=== PATIENT | female | born 1980 | race Caucasian/White ===

== ENCOUNTER 2025-07-09 17:52 | Emergency (ER) | payer OTHER, SELFPAY ==
[2025-07-09] VITALS (20 sets, daily range): BP systolic 130–160; BP diastolic 72–90; PULSE 51–93; TEMP 36.8; O2SAT 98–100; BMI 34.0
--- OUTSIDE RECORDS SUMMARY | 2025-07-09 18:04 | XMS_ITS | Encounter Summary ---
Author Organization [facility] Address [address] [place] [address] Care Team Providers Care Rigging Slinger Name Role Phone Valerie Arnold DO Primary Care Provider [phone]- [phone] Marcelino Stout ORNAMENTAL IRONWORKER.DIETARY AIDE TEACHER Unavailable Source Comments In the event this information is protected by the Federal Confidentiality of Alcohol and Drug AbusePatient Records regulations: The Federal rules restrict any use of the information to criminally investigate or prosecute any alcohol or drug abuse patient.[facility] Reason for Visit * Reason Onset Date Comments Refill Request 07/04/2025 Encounter Details Date Type Department Care Team (Late st Contact Info) Description 07/04/2025 Refill Family Medicine [address] [place] [address] [place] [address] [place] [address] Refill Request Social History Tobacco Use Types Packs/Day Years Used Date Smoking Tobacco: Never Smokeless Tobacco: Never Alcohol Use Standard Drinks/Week Comments Yes 3 (1 standard drink = 0.6 oz pur e alcohol) occasionally [facility] Utilities Answer Date Recorded In the past 12 months has th e electric, gas, oil, or water company threatened to shut off services in your home? Patient declined 04/04/2025 Social Connection and Isolation Panel Answer Date Recorded In a typical week, how many times do you talk on the phone with family, friends, or neighbors? Three times a week 04/04/2025 How often do you get togethe r with friends or relatives? Once a week 04/04/2025 How often do you attend [facility] or faith services? Never 04/04/2025 Do you belong to any clubs o r organizations such as jewish groups, unions, fraternal or athletic groups, or school groups? No 04/04/2025 How often do you attend meet ings of the clubs or organizations you belong to? Never 04/04/2025 Are you , , di vorced, , never , or living with a partner? 04/04/2025 AUDIT-C Answer Date Recorded Q1: How often do you have a drink containing alc ohol? Patient declined 04/04/2025 Q2: How many drinks containi ng alcohol do you have on a typical day when you are drinking? Patient declined 04/04/2025 Q3: How often do you have si x or more drinks on one occasion? Patient declined 04/04/2025 Overall Financial Resource Strain (CARDIA) Answe r Date Recorded How hard is it for you to pa y for the very basics like food, housing, medical care, and heating? Not hard at all 04/04/2025 PHQ-2 Answer Date Recorded PHQ-2 score 0 04/04/2025 [facility] - Occupational Stress Questionnaire Answer Date Recorded Do you feel stress - tense, restless, nervous, or anxious, or unable to sleep at night because your mind is troubled all the time - these days? Not at all 04/04/2025 Exercise Vital Sign Answer Date Recorde d On average, how many days pe r week do you engage in moderate to strenuous exercise (like a brisk walk)? 0 days 04/04/2025 On average, how many minutes do you engage in exercise at this level? 0 min 04/04/2025 Hunger Vital Sign Answer Date Recorded Within the past 12 months, y ou worried that your food would run out before you got the money to buy more. Patient declined Within the past 12 months, t he food you bought just didn't last and you didn't have money to get more. Patient declined 05/2025 PRAPARE - Transportation Answer Date Re corded In the past 12 months, has l ack of transportation kept you from medical appointments or from getting medications? Patient declined 04/04/2025 In the past 12 months, has l ack of transportation kept you from meetings, work, or from getting things needed for daily living? Patient declined 04/04/2025 Housing Stability Vital Sign Answer Supa e Recorded In the last 12 months, was t here a time when you were not able to pay the mortgage or rent on time? No 12/08/2023 In the last 12 months, how many places have you lived? 1 12/08/2023 In the last 12 months, was t here a time when you did not have a steady place to sleep or slept in a halfway (including now)? No 12/08/2023 Area Deprivation Index Answer Date Oli rded National Score (1-100), lowe r number is lower risk 42 12/08/2023 State Score (1-10), lower number is lower risk 2 12/08/2023 Data from: https://www.neighborhoodatlas.medicine.[facility].edu/. 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 Answer Date of Assessment Author No 02/14/2023 3:17 PM Hailey Pollack RN * Are you blind or do you have serious difficulty seeing, even when wearing glasses? Answer Date of Assessment Author No 02/14/2023 3:17 PM Hailey Pollack RN * Do you have serious difficulty walking or climbing stairs? Answer Date of Assessment Author No 02/14/2023 3:17 PM EDT Hailey Jung RN * Do you have difficulty dressing or bathing? Answer Date of Assessment Author No 02/14/2023 3:17 PM EDT Hailey Jung RN * Because of a physical, mental, or emotional condition, do you have difficulty doing errands alone such as visiting a doctor's office or shopping? Answer Date of Assessment Author No 02/14/2023 3:17 PM EDT Hailey Jung RN documented as of this encounter Mental Status * Because of a physical, mental, or emotional condition, do you have serious difficulty concentrating, remembering, or making decisions? Answer Entry Date Author No 02/14/2023 3:17 PM EDT Hailey Jung RN documented in this encounter Miscellaneous Notes * Telephone Encounter - Elvi Hinojosa - 07/05/2025 2:58 PM EDT Called patient on: 07/05/25 Was Voicemail Left: yes Was an appointment scheduled: no MyChart Message Sent: yes Purpose of Call: To assist patient schedule with DO Elvi Higgins Pss * Telephone Encounter - Valerie Arnold DO - 07/05/2025 1:28 PM EDT Prescriptions approved. Patient is due for med check, it can be virtual. Please schedule appointment before next refill is needed. Thank you. * Telephone Encounter - Miguelina Gimenez MA - 07/05/2025 9:34 AM EDT Pt last seen 04/06/25. Pharmacy electronically requesting refills as follows: Requested Prescriptions Pending Prescriptions Disp Refills ondansetron (ZOFRAN) 4 mg tablet 10 tablet 0 Sig: Take 1 tablet by mouth every 8 hours as needed for nausea/vomiting. amphetamine-dextroamphetamine XR (ADDERALL XR) 20 mg capsule 30 capsule 0 Sig: Take 1 capsule by mouth once daily for 30 days. Please review and advise. Miguelina Gimenez MA documented in this encounter Plan of Treatment Upcoming Encounters Date Type Department Care Team (Latest Contact Info) Description 08/08/2025 1:40 PM EDT [facility] [address] [place] [address] [place] [address] [place] [address] med review Zofran and Aderall documented as of this encounter Visit Diagnoses Diagnosis Adult ADHD Attention deficit disorder with hyperactivity documented in this encounter Care Teams Rigging Slinger Relationship Specialty [place] [address] [place] [address] PCP - General Family Medicine 08/10/24 Marcelino Stout, LANDRY.DIETARY AIDE TEACHER [address] [place] [address] Jewelry Appraiser Family Medicine 03/02/25 documented as of this encounter
--- OUTSIDE RECORDS SUMMARY | 2025-07-09 18:04 | XMS_ITS | Encounter Summary ---
Author Organization [facility] Address [address] [place] [address] Care Team Providers Care Concrete Hopper Operator Name Role Phone Valerie Arnold DO Primary Care Provider [phone]- [phone] Marcelino Stout COUNTER SUPERVISOR.WIND TURBINE SERVICE TECHNICIAN Unavailable Source Comments In the event this information is protected by the Federal Confidentiality of Alcohol and Drug AbusePatient Records regulations: The Federal rules restrict any use of the information to criminally investigate or prosecute any alcohol or drug abuse patient.[facility] Encounter Details Date Type Department Care Team (Late st Contact Info) Description 06/07/2025 Results Follow-Up Family Medicine [address] [place] [address] [place] [address] [place], [place] [id number] Social History Tobacco Use Types Packs/Day Years Used Date Smoking Tobacco: Never Smokeless Tobacco: Never Alcohol Use Standard Drinks/Week Comments Yes 3 (1 standard drink = 0.6 oz pur e alcohol) occasionally [facility] Utilities Answer Date Recorded In the past 12 months has th e electric, gas, oil, or water [employer] threatened to shut off services in your home? Patient declined 04/04/2025 Social Connection and Isolation Panel Answer Date Recorded In a typical week, how many times do you talk on the phone with family, friends, or neighbors? Three times a week 04/04/2025 How often do you get togethe r with friends or relatives? Once a week 04/04/2025 How often do you attend chur or roman catholic services? Never 04/04/2025 Do you belong to any clubs o r organizations such as anglican groups, unions, fraternal or athletic groups, or [...] Answer Date Recorded PHQ-2 score 0 04/04/2025 [facility]at ional [facility] - Occupational Stress Questionnaire Answer Date Recorded [...] place to sleep or slept in a nursing home (including now)? No 12/08/2023 Area Deprivation Index Answer Date Oli rded National Score (1-100), lowe r number is lower risk 42 12/08/2023 State Score (1-10), lower number is lower risk 2 12/08/2023 Data from: https://www.neighborhoodatlas.medicine.[facility].edu/. 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 Not on file Not on ilana e [...] Hailey Pollack RN * Do you have difficulty dressing [...] Hailey Jung RN documented in this encounter Plan of Treatment Upcoming Encounters Date Type Department Care Team (Latest Contact Info) Description 08/08/2025 1:40 PM EDT [facility] [address] [place] [address] [place] [address] [place] [address] med review Zofran and Aderall documented as of this encounter Visit Diagnoses Not on filedocumented in this encounter Care Teams Concrete Hopper Operator Relationship Specialty [place] [address] [place] [address] PCP - General Family Medicine 08/10/24 Marcelino Stout, LANDRY.WIND TURBINE SERVICE TECHNICIAN [address] [place] [address] Assistant Nurse Manager Family Medicine 03/02/25 documented as of this encounter
--- OUTSIDE RECORDS SUMMARY | 2025-07-09 18:04 | XMS_ITS | Encounter Summary ---
Author Organization [facility] Address [address] [place] [address] Care Team Providers Care Top Polisher Name Role Phone Moores MillValerie salazar Primary Care Provider [phone] Marcelino Stout MAIL SERVICE COORDINATOR.SINGLE PASS SOIL STABILIZER OPERATOR Unavailable Source Comments In the event this information is protected by the Federal Confidentiality of Alcohol and Drug AbusePatient Records regulations: The Federal rules restrict any use of the information to criminally investigate or prosecute any alcohol or drug abuse patient.[facility] Encounter Details Date Type Department Care Team (Late st Contact Info) Description 06/07/2025 Patient Msg Medical Records [address] [place] [address] Provider, [facility] Questionnaire Submission Social History Tobacco Use Types Packs/Day Years Used Date Smoking Tobacco: Never Smokeless Tobacco: Never Alcohol Use Standard Drinks/Week Comments Yes 3 (1 standard drink = 0.6 oz pur e alcohol) occasionally [facility] Utilities Answer Date Recorded In the past 12 months has e electric, gas, oil, or water company [...] 04/04/2025 How often do you attend chur ch or holiness services? Never 04/04/2025 Do you belong to any clubs o r organizations such as anabaptism groups, unions, fraternal or athletic groups, or [...] Answer Date Recorded PHQ-2 score 0 04/04/2025 [facility] - Occupational Stress Questionnaire Answer Date Recorded [...] place to sleep or slept in a intermediate (including now)? No 12/08/2023 Area Deprivation Index Answer Date Oli rded National Score (1-100), lowe r number is lower risk 42 12/08/2023 State Score (1-10), lower number is lower risk 2 12/08/2023 Data from: https://www.neighborhoodatlas.medicine.[facility]/. 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 file Not on ilana e [...] 02/14/2023 3:17 PM Hailey Pollack RN * Because of a physical, mental, [...] Contact Info) Description 08/08/2025 1:40 PM EDT [facility] Medicine [address] [place] [address] [place] [address] [place] [address] med review Zofran and Aderall documented as of this encounter Visit Diagnoses Not on filedocumented in this encounter Care Teams Top Polisher Relationship Specialty [place] [address] [place] [address] PCP - General Family Medicine 08/10/24 Marcelino Stout, LANDRY.EUGENIA [address] [place] [address] International Relations Teacher Family Medicine 03/02/25 documented as of this encounter
--- OUTSIDE RECORDS SUMMARY | 2025-07-09 18:04 | XMS_ITS | Encounter Summary ---
Author Organization [facility] Address [address] [place] [address] Care Team Providers Care Packing Shed Supervisor Name Role Phone Francisco J Rico DO Primary Care Provider [phone]- [phone] Valerie Arnold DO Primary Care Provider [phone] Nuvia Jesus DO Unavailable Marcelino Stout STONE GRADER.LOGISTICS SYSTEM ENGINEER Unavailable Source Comments In the event this information is protected by the Federal Confidentiality of Alcohol and Drug AbusePatient Records regulations: The Federal rules restrict any use of the information to criminally investigate or prosecute any alcohol or drug abuse patient.[facility] Encounter Details Date Type Department Care Team (Late st Contact Info) Description 02/19/2023 Get Medical Advice Family Medicine [address] [place] [address] Francisco J Rico DO [address] [place] [address] Sharri Social History Tobacco Use Types Packs/Day Years Used Date Smoking Tobacco: Never Smokeless Tobacco: Never Alcohol Use Standard Drinks/Week Comments Yes 3 (1 standard drink = 0.6 oz pur e alcohol) occasionally Social Connection and Isolation Panel Answer Date Recorded In a typical week, how many times do you talk on the phone with family, friends, or neighbors? More than three times a week 10/28/2022 How often do you get togethe r with friends or relatives? Twice a week 10/28/2022 How often do you attend chur or confucianism services? Never 10/28/2022 Do you belong to any clubs o r organizations such as taoism groups, unions, fraternal or athletic groups, or school groups? No 10/28/2022 How often do you attend meet ings of the clubs or organizations you belong to? Never 10/28/2022 Are you , , di vorced, , never , or living with a partner? Living with partner 10/28/2022 AUDIT-C Answer Date Recorded Q1: How often do you have a drink containing alc ohol? 2-4 times a month 10/28/2022 Q2: How many drinks containi ng alcohol do you have on a typical day when you are drinking? 1 or 2 10/28/2022 Q3: How often do you have si x or more drinks on one occasion? Never 10/28/2022 Overall Financial Resource Strain (CARDIA) Answe r Date Recorded How hard is it for you to pa y for the very basics like food, housing, medical care, and heating? Not hard at all 10/28/2022 PHQ-2 Answer Date Recorded PHQ-2 score 0 12/28/2022 [facility] Occupat ional Health - Occupational Stress Questionnaire Answer Date Recorded Do you feel stress - tense, restless, nervous, or anxious, or unable to sleep at night because your mind is troubled all the time - these days? Only a little 10/28/2022 Exercise Vital Sign Answer Date Recorde d On average, how many days pe r week do you engage in moderate to strenuous exercise (like a brisk walk)? 3 days 10/28/2022 On average, how many minutes do you engage in exercise at this level? 60 min 10/28/2022 Hunger Vital Sign Answer Date Recorded Within the past 12 months, y ou worried that your food would run out before you got the money to buy more. Never true 10/28/20 22 Within the past 12 months, t he food you bought just didn't last and you didn't have money to get more. Never true 10/28/2022 PRAPARE - Transportation Answer Date Re corded In the past 12 months, has l ack of transportation kept you from medical appointments or from getting medications? No 10/01 In the past 12 months, has l ack of transportation kept you from meetings, work, or from getting things needed for daily living? No 10/28/2022 Housing Stability Vital Sign Answer Supa e Recorded In the last 12 months, was t here a time when you were not able to pay the mortgage or rent on time? No 10/28/2022 In the last 12 months, how many places have you lived? 1 10/28/2022 In the last 12 months, was t here a time when you did not have a steady place to sleep or slept in a care home (including now)? No 10/28/2022 Area Deprivation Index Answer Date Oli rded National Score (1-100), lowe r number is lower risk 36 12/12/2022 State Score (1-10), lower number is lower risk N ot on file 12/12/2022 Data from: https://www.neighborhoodatlas.medicine.[facility].edu/. Last address used for calculation [address] 12/12/2022 Comments No Sex and Gender Information Value Date Recorded Sex Assigned at Not on file Legal Sex Female 10:15 AM EST Gender Identity Not on file Sexual Orientation Not on file documented as of this [...] Contact Info) Description 08/08/2025 1:40 PM EDT [facility] Medicine [address] [place] [address] [place] [address] [place] [address] med review Zofran and Aderall documented as of this encounter Visit Diagnoses Not on filedocumented in this encounter Care Teams Packing Shed Supervisor Relationship Specialty Start Date End Date Francisco J Rico DO PCP - General Family Medicine 09/01/22 08/09/24 [place] [address] [place] [address] PCP - General Family Medicine 08/10/24 [place] [address] [place] [address] Bisque Tile Burner Family Medicine 11/05/24 03/01/25 Marcelino Stout APRN.EUGENIA [address] [place] [address] Bisque Tile Burner Family Medicine 03/02/25 documented as of this encounter
--- OUTSIDE RECORDS SUMMARY | 2025-07-09 18:04 | XMS_ITS | Encounter Summary ---
Author Organization [facility] Address [address] [place] [address] Care Team Providers Care Garbage Truck Dispatcher Name Role Phone Valerie Arnold Primary Care Provider [phone]- [phone] Marcelino Stout FOREST TECHNICIAN.INSPECTOR AIDE Unavailable Source Comments In the event this information is protected by the Federal Confidentiality of Alcohol and Drug AbusePatient Records regulations: The Federal rules restrict any use of the information to criminally investigate or prosecute any alcohol or drug abuse patient.[facility] Encounter Details Date Type Department Care Team (Late st Contact Info) Description 06/12/2025 Results Follow-Up Family Medicine [address] [place], [place] [id number] Tom Austin APRN.INSPECTOR AIDE [address] [place], [place] [id number] Social History Tobacco Use Types Packs/Day Years Used Date Smoking Tobacco: Never Smokeless Tobacco: Never Alcohol Use Standard Drinks/Week Comments Yes 3 (1 standard drink = 0.6 oz pur e alcohol) occasionally [facility] Utilities Answer Date Recorded In the past 12 months has th e electric, gas, oil, or water [employer] threatened to shut off services in your [...] often do you attend chur ch or mormonism services? Never 04/04/2025 Do you belong to any clubs o r organizations such as cheondoism groups, unions, fraternal or athletic groups, or [...] Answer Date Recorded PHQ-2 score 0 04/04/2025 [facility] of Occupat ional Health - Occupational [...] is lower risk 2 12/08/2023 Data from: https://www.neighborhoodatlas.medicine.[facility].edu/. 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 Answer Entry Date Author No 02/14/2023 3:17 PM EDT Hailey Jung RN documented in this encounter Plan of Treatment Upcoming Encounters Date Type Department Care Team (Latest Contact Info) Description 08/08/2025 1:40 PM EDT [facility] Medicine [address] [place] [address] [place] [address] [place] [address] med review Zofran and Aderall documented as of this encounter Visit Diagnoses Not on filedocumented in this encounter Care Teams Garbage Truck Dispatcher Relationship Specialty [place] [address] [place] [address] PCP - General Family Medicine 08/10/24 Marcelino Stout APRN.CNP [address] [place] [address] Flame Cutter Family Medicine 03/02/25 documented as of this encounter
--- OUTSIDE RECORDS SUMMARY | 2025-07-09 18:04 | XMS_ITS | Encounter Summary ---
Author Organization [facility] Address [address] [place] [address] Care Team Providers Care Wiping Cloth Cutter Name Role Phone Valerie Arnold Primary Care Provider +1- [phone] Marcelino Stout CONSUMER LOAN UNDERWRITER.DIPLOMA MAKER Unavailable Source Comments In the event this information is protected by the Federal Confidentiality of Alcohol and Drug AbusePatient Records regulations: The Federal rules restrict any use of the information to criminally investigate or prosecute any alcohol or drug abuse patient.[facility] Encounter Details Date Type Department Care Team (Late st Contact Info) Description 06/12/2025 Results Follow-Up Family Medicine [address] [place], [place] [id number] Tom Austin APRN.DIPLOMA MAKER [address] [place], [place] [id number] Social History Tobacco Use Types Packs/Day Years Used Date Smoking Tobacco: Never Smokeless Tobacco: Never Alcohol Use Standard Drinks/Week Comments Yes 3 (1 standard drink = 0.6 oz pur e alcohol) occasionally [facility] Utilities Answer Date Recorded In the past 12 months has th e electric, gas, oil, or water [employer] threatened to shut off services in your [...] often do you attend chur ch or religion services? Never 04/04/2025 Do you belong to any clubs o r organizations such as roman catholic groups, unions, fraternal or athletic groups, or [...] Answer Date Recorded PHQ-2 score 0 04/04/2025 [facility] of Occupat ional Health - Occupational [...] place to sleep or slept in a fci (including now)? No 12/08/2023 Area Deprivation Index Answer Date Oli rded National Score (1-100), lowe r number is lower risk 42 12/08/2023 State Score (1-10), lower number is lower risk 2 12/08/2023 Data from: https://www.neighborhoodatlas.medicine.[facility].edu/. 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
--- OUTSIDE RECORDS SUMMARY | 2025-07-09 18:04 | XMS_ITS | Encounter Summary ---
Author Organization [facility] Address [address] [place] [address] Care Team Providers Care Helmet Hat Sweatband Puncher Name Role Phone RicoFrancisco J gonzalez Rupert DO Primary Care Provider + [phone] Valerie Arnold DO Primary Care Provider +1- [phone] Nuvia Jesus DO Unavailable Marcelino Stout PEGA DEVELOPER.LABOR REPRESENTATIVE Unavailable Source Comments In the event this information is protected by the Federal Confidentiality of Alcohol and Drug AbusePatient Records regulations: The Federal rules restrict any use of the information to criminally investigate or prosecute any alcohol or drug abuse patient.[facility] Encounter Details Date Type Department Care Team (Late st Contact Info) Description 09/01/2022 Patient Msg Endocrinology [address] [place] [address] Yeison Teran APRN.LABOR REPRESENTATIVE [address] [place], [place] [id number] Appointment Cancellation Request Social History Tobacco Use Types Packs/Day Years Used Date Smoking Tobacco: Never Smokeless Tobacco: Never Alcohol Use Standard Drinks/Week Comments Yes 3 (1 standard drink = 0.6 oz pur e alcohol) occasionally Social Connection and Isolation Panel Answer Date Recorded In a typical week, how many times do you talk on the phone with family, friends, or neighbors? Once a week 08/10/20 How often do you get togethe r with friends or relatives? Never 08/10/2022 How often do you attend chur or religion services? Never 08/10/2022 Do you belong to any clubs o r organizations such as restorationism groups, unions, fraternal or athletic groups, or school groups? No 08/10/2022 How often do you attend meet ings of the clubs or organizations you belong to? Never 08/10/2022 Are you , , di vorced, , never , or living with a partner? Living with partner 08/10/2022 AUDIT-C Answer Date Recorded Q1: How often do you have a drink containing alc ohol? 2-3 times a week 08/10/2022 Q2: How many drinks containi ng alcohol do you have on a typical day when you are drinking? 1 or 2 08/10/2022 Q3: How often do you have si x or more drinks on one occasion? Never 08/10/2022 Overall Financial Resource Strain (CARDIA) Answe r Date Recorded How hard is it for you to pa y for the very basics like food, housing, medical care, and heating? Not hard at all 08/10/2022 PHQ-2 Answer Date Recorded PHQ-2 score 5 08/10/2022 [facility]ational Stress Questionnaire Answer Date Recorded Do you feel stress - tense, restless, nervous, or anxious, or unable to sleep at night because your mind is troubled all the time - these days? Very much 08/10/2022 Exercise Vital Sign Answer Date Recorde d On average, how many days pe r week do you engage in moderate to strenuous exercise (like a brisk walk)? 0 days 08/10/2022 On average, how many minutes do you engage in exercise at this level? 0 min 08/10/2022 Hunger Vital Sign Answer Date Recorded Within the past 12 months, y ou worried that your food would run out before you got the money to buy more. Never true 08/10/20 22 Within the past 12 months, t he food you bought just didn't last and you didn't have money to get more. Never true 08/10/2022 PRAPARE - Transportation Answer Date Re corded In the past 12 months, has l ack of transportation kept you from medical appointments or from getting medications? No 07/30 In the past 12 months, has l ack of transportation kept you from meetings, work, or from getting things needed for daily living? No 08/10/2022 Housing Stability Vital Sign Answer Supa e Recorded In the last 12 months, was t here a time when you were not able to pay the mortgage or rent on time? No 08/25/2022 In the last 12 months, how many places have you lived? 1 08/25/2022 In the last 12 months, was t here a time when you did not have a steady place to sleep or slept in a retirement (including now)? No 08/25/2022 Area Deprivation Index Answer Date Oli rded National Score (1-100), lowe r number is lower risk 36 07/15/2022 State Score (1-10), lower number is lower risk N ot on file 07/15/2022 Data from: https://www.neighborhoodatlas.medicine.[facility].edu/. Last address used for calculation [address] 07/15/2022 Comments No Sex and Gender Information Value Date Recorded Sex Assigned at Not on file Legal Sex Female 10:15 AM EST Gender Identity Not on file Sexual Orientation Not on file COVID-19 Exposure Response Date Recorded In the last 10 days, have yo u been in contact with someone who was confirmed or suspected to have Coronavirus/COVID-19? No / Unsure 09/02/2022 11:13 AM EDT documented as of this encounter Plan of Treatment Upcoming Encounters Date Type Department Care Team (Latest Contact Info) Description 08/08/2025 1:40 PM EDT [facility] Family Medicine [address] [place], [place] [id number] [place] [address] [place] [address] med review Zofran and Aderall documented as of this encounter Visit Diagnoses Not on filedocumented in this encounter Additional Health Concerns Infection Onset Date Last Indicated Resolved Time COVID-19 Rule-Out 02/08/2023 02/08/2023 02/08/2023 2:00 PM EDT COVID-19 Rule-Out 02/13/2023 02/13/2023 02/13/2023 12:52 AM EDT documented as of this encounter Care Teams Helmet Hat Sweatband Puncher Relationship Specialty Start Date End Date Francisco J Rico DO PCP - General Family Medicine 09/01/22 08/09/24 [place] [address] [place] [address] PCP - General Family Medicine 08/10/24 [place] [address] [place] [address] Emt I/99 Family Medicine 11/05/24 03/01/25 Marcelino Stout APRN.EUGENIA [address] [place] [address] Emt I/99 Family Medicine 03/02/25 documented as of this encounter
--- OUTSIDE RECORDS SUMMARY | 2025-07-09 18:05 | XMS_ITS | Encounter Summary ---
Author Organization [facility] Address [address] [place] [address] Care Team Providers Care Educational Programming Director Name Role Phone Francisco J Rico DO Primary Care Provider +1- [phone] Valerie Arnold DO Primary Care Provider +1 [phone] Nuvia Jesus DO Unavailable Marcelino Stout SPECIAL EDUCATION TEACHING ASSISTANT.LICENSED LOAN OFFICER Unavailable Source Comments In the event this information is protected by the Federal Confidentiality of Alcohol and Drug AbusePatient Records regulations: The Federal rules restrict any use of the information to criminally investigate or prosecute any alcohol or drug abuse patient.[facility] Encounter Details Date Type Department Care Team (Late st Contact Info) Description 02/12/2023 Get Medical Advice Family Medicine [address] [place] [address] Francisco J Rico DO [address] [place] [address] Hospital admit? Social History Tobacco Use Types Packs/Day Years [...] How often do you attend chur or baptist services? Never 10/28/2022 Do you belong to any clubs o r organizations such as adventist groups, unions, fraternal or athletic groups, or [...] Answer Date Recorded PHQ-2 score 0 12/28/2022 [facility] of Occupat ional Health - Occupational [...] slept in a halfway (including now)? No 10/28/2022 Area Deprivation Index Answer Date Oli rded National Score (1-100), lowe r number is lower risk 36 12/12/2022 State Score (1-10), lower number is lower risk N ot on file 12/12/2022 Data from: https://www.neighborhoodatlas.medicine.[facility].edu/. Last address used for calculation [address] 12/12/2022 Comments No Sex and Gender Information Value Date Recorded Sex Assigned at Not on file Legal Sex Female 10:15 AM EST Gender Identity Not on file Sexual Orientation Not on file documented as of this encounter Plan of Treatment Upcoming Encounters Date Type Department Care Team (Latest Contact Info) Description 08/08/2025 1:40 PM EDT [facility] Family Medicine [address] [place], [place] [phone] [place] [address] [place], [place] [id number] med review Zofran and Aderall documented as of this encounter Visit Diagnoses Not on filedocumented in this encounter Additional Health Concerns Infection Onset Date Last Indicated Resolved Time COVID-19 Rule-Out 02/13/2023 02/13/2023 02/13/2023 12:52 AM EDT documented as of this encounter Care Teams Educational Programming Director Relationship Specialty Start Date End Date Francisco J Rico DO PCP - General Family Medicine 09/01/22 08/09/24 [place] [address] [place] [address] PCP - General Family Medicine 08/10/24 [place] [address] [place] [address] Rn Otolaryngology Family Medicine 11/05/24 03/01/25 Marcelino Stout, LANDRY.LICENSED LOAN OFFICER [address] [place] [address] Rn Otolaryngology Family Medicine 03/02/25 documented as of this encounter
--- OUTSIDE RECORDS SUMMARY | 2025-07-09 18:05 | XMS_ITS | Encounter Summary ---
Author Organization [facility] Address [address] [place] [address] Care Team Providers Care Striper Spray Gun Name Role Phone Valerie Arnold DO Primary Care Provider +1- [phone] Nuvia Jesus DO Unavailable Marcelino Stout CHAIN MAKER HAND.VIDEO PRODUCTION ENGINEER Unavailable Source Comments In the event this information is protected by the Federal Confidentiality of Alcohol and Drug AbusePatient Records regulations: The Federal rules restrict any use of the information to criminally investigate or prosecute any alcohol or drug abuse patient.[facility] Reason for Visit * Reason Onset Date Comments Refill Request 02/23/2025 Encounter Details Date Type Department Care Team (Late st Contact Info) Description 02/23/2025 Refill Family Medicine [address] [place], [place] [id number] [place] [address] [place] [address] Refill Request Social History Tobacco Use Types Packs/Day Years Used Date Smoking Tobacco: Never Smokeless Tobacco: Never Alcohol Use Standard Drinks/Week Comments Yes 3 (1 standard drink = 0.6 oz pur e alcohol) occasionally [facility] Utilities Answer Date Recorded In the past 12 months has th e electric, gas, oil, or water company threatened to shut off services in your home? No 12/08/2023 Social Connection and Isolation Panel Answer Date Recorded In a typical week, how many times do you talk on the phone with family, friends, or neighbors? Three times a week 12/08/19 How often do you get togethe r with friends or relatives? Once a week 12/08/2023 How often do you attend chur ch or baptism services? Never 12/08/2023 Do you belong to any clubs o r organizations such as amish groups, unions, fraternal or athletic groups, or school groups? No 12/08/2023 How often do you attend meet ings of the clubs or organizations you belong to? Never 12/08/2023 Are you , , di vorced, , never , or living with a partner? Living with partner 12/08/2023 AUDIT-C Answer Date Recorded Q1: How often do you have a drink containing alcohol? 4 or more times a week 12/08/2023 Q2: How many drinks containi ng alcohol do you have on a typical day when you are drinking? 1 or 2 Q3: How often do you have si x or more drinks on one occasion? Never 12/08/2023 Overall Financial Resource Strain (CARDIA) Answe r Date Recorded How hard is it for you to pa y for the very basics like food, housing, medical care, and heating? Not hard at all 12/08/2023 PHQ-2 Answer Date Recorded PHQ-2 score 0 12/08/2023 [facility] of Occupat ional Health - Occupational Stress Questionnaire Answer Date Recorded Do you feel stress - tense, restless, nervous, or anxious, or unable to sleep at night because your mind is troubled all the time - these days? Not at all 12/08/2023 Exercise Vital Sign Answer Date Recorde d On average, how many days pe r week do you engage in moderate to strenuous exercise (like a brisk walk)? 2 days 12/08/2023 On average, how many minutes do you engage in exercise at this level? 30 min 12/08/2023 Hunger Vital Sign Answer Date Recorded Within the past 12 months, y ou worried that your food would run out before you got the money to buy more. Never true 12/08/19 24 Within the past 12 months, t he food you bought just didn't last and you didn't have money to get more. Never true 12/08/2023 PRAPARE - Transportation Answer Date Re corded In the past 12 months, has l ack of transportation kept you from medical appointments or from getting medications? No 11/29 In the past 12 months, has l ack of transportation kept you from meetings, work, or from getting things needed for daily living? No 12/08/2023 Housing Stability Vital Sign Answer Supa e [...] place to sleep or slept in a penitentiary (including now)? No 12/08/2023 Area Deprivation Index Answer Date Oli rded National Score (1-100), lowe r number is lower risk 42 12/08/2023 State Score (1-10), lower number is lower risk 2 12/08/2023 Data from: https://www.neighborhoodatlas.medicine.[facility].edu/. 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 Answer Date of Assessment Author No 02/14/2023 3:17 PM Hailey Pollack, BRAD * Are you blind or do you [...] * Telephone Encounter - Elvi Hinojosa - 02/26/2025 2:08 PM EDT Called patient on: 02/26/25 Was Voicemail Left: yes Was an appointment scheduled: no [employer]hart Message Sent: yes Purpose of Call: To assist patient schedule for a follow up appt for Medication refills with Dr. Clayton DO. Elvi Johnson Pss * Telephone Encounter - Valerie Arnold DO - 02/23/2025 2:45 PM EDT Patient is due for an office appointment for ADHD follow-up. I did refill her prescription for thismonth however she needs an appointment before the next refill is needed. Thank you. PDMP reviewed and appropriate, without red flags Urine drug screen is due, last done November 2023. Will complete at next appointment Refill appropriate and has been approved * Telephone Encounter - Brianna Lilly MA - 02/23/2025 1:39 PM EDT Last OV 10/31/2024 ..Pharmacy escripts requesting the following refill: Requested Prescriptions Pending Prescriptions Disp Refills ondansetron (ZOFRAN) 4 mg tablet 10 tablet 0 Sig: Take 1 tablet by mouth every 8 hours as needed for nausea/vomiting. amphetamine-dextroamphetamine XR (ADDERALL XR) 20 mg capsule 30 capsule 0 Sig: Take 1 capsule by mouth once daily for 30 days. Please review and advise. Brianna Lilly MA documented in this encounter Plan of Treatment Upcoming Encounters Date Type Department Care Team (Latest Contact Info) Description 08/08/2025 1:[address] [facility] [address] [place] [address] [place] [address] [place] [address] med review Zofran and Aderall documented as of this encounter Visit Diagnoses Diagnosis Attention deficit hyperactivity disorder (ADHD), predominantly inattentive type documented in this encounter Care Teams Striper Spray Gun Relationship Specialty Start [place] [address] [place] [address] PCP - General Family Medicine 08/10/24 [place] [address] [place] [address] Educational Resource Center Teacher Family Medicine 11/05/24 03/01/25 Marcelino Stout APRN.EUGENIA [address] [place] [address] Educational Resource Center Teacher Family Medicine 03/02/25 documented as of this encounter
--- OUTSIDE RECORDS SUMMARY | 2025-07-09 18:05 | XMS_ITS | Encounter Summary ---
Author Organization [facility] Address [address] [place] [address] Care Team Providers Care Interior Design Faculty Member Name Role Phone Francisco J Rico DO Primary Care Provider + [phone] Valerie Arnold DO Primary Care Provider +1 [phone] Nuvia Jesus DO Unavailable Marcelino Stout LIFE SCIENTIST.DROP HAMMER SETTER UP Unavailable Source Comments In the event this information is protected by the Federal Confidentiality of Alcohol and Drug AbusePatient Records regulations: The Federal rules restrict any use of the information to criminally investigate or prosecute any alcohol or drug abuse patient.[facility] Encounter Details Date Type Department Care Team (Late st Contact Info) Description 07/20/2024 Get Medical Advice Family Medicine [facility] [address] [place] [address] Francisco J Rico DO [address] [place] [address] Wemayela and adderall Social History Tobacco Use Types Packs/Day Years Used Date Smoking Tobacco: Never Smokeless Tobacco: Never Alcohol Use Standard Drinks/Week Comments Yes 3 (1 standard drink = 0.6 oz pur e alcohol) occasionally [facility] Utilities Answer Date Recorded In the past [...] week 12/08/2023 How often do you attend [facility] ch or confucianism services? Never 12/08/2023 Do you belong to any clubs o r organizations such as protestant groups, unions, fraternal or athletic groups, or [...] Answer Date Recorded PHQ-2 score 0 12/08/2023 [facility] of Occupat ional Health - Occupational Stress [...] place to sleep or slept in a residential (including now)? No 12/08/2023 Area Deprivation Index Answer Date Oli rded National Score (1-100), lowe r number is lower risk 42 12/08/2023 State Score (1-10), lower number is lower risk 2 12/08/2023 Data from: https://www.neighborhoodatlas.medicine.[facility].edu/. Last address used for calculation [address] 12/08/2023 Comments No Sex [...] 1:40 PM EDT [facility] Medicine [address] [place] [address] [place] [address] [place] [address] med review Zofran and Aderall documented as of this encounter Visit Diagnoses Not on filedocumented in this encounter Care Teams Interior Design Faculty Member Relationship Specialty Start Date End Date Francisco J Rico DO PCP - General Family Medicine 09/01/22 08/09/24 [place] [address] [place] [address] PCP - General Family Medicine 08/10/24 [place] [address] [place] [address] Assistant Professor Of Marine Biology Family Medicine 11/05/24 03/01/25 Marcelino Stout, LANDRY.DROP HAMMER SETTER UP [address] [place], [place] [id number] Assistant Professor Of Marine Biology Family Medicine 03/02/25 documented as of this encounter
--- OUTSIDE RECORDS SUMMARY | 2025-07-09 18:05 | XMS_ITS | Encounter Summary ---
Author Organization [facility] Address [address] [place] [address] Care Team Providers Care Dermatology Physician Name Role Phone Trisha Francisco J Emery DO Primary Care Provider +- [phone] Valerie Arnold DO Primary Care Provider +1 [phone] Nuvia Jesus DO Unavailable Marcelino Stout STAFF NURSE.MANAGER CLINICAL Unavailable Source Comments In the event this information is protected by the Federal Confidentiality of Alcohol and Drug AbusePatient Records regulations: The Federal rules restrict any use of the information to criminally investigate or prosecute any alcohol or drug abuse patient.[facility] Encounter Details Date Type Department Care Team (Late st Contact Info) Description 06/10/2023 Patient Msg MRI A10 [address] [address] Provider, [facility] Order for your Imaging Social History Tobacco Use Types Packs/Day Years [...] 10/28/2022 How often do you attend chur ch or mormon services? Never 10/28/2022 Do you belong to [...] Answer Date Recorded PHQ-2 score 0 12/28/2022 [facility] of Occupat ional Health - Occupational [...] slept in a residential (including now)? No 10/28/2022 Area Deprivation Index Answer Date Oli rded National Score (1-100), lowe r number is lower risk 36 12/12/2022 State Score (1-10), lower number is lower risk N ot on file 12/12/2022 Data from: https://www.neighborhoodatlas.[facility].edu/. Last address used for calculation [address] 12/12/2022 Comments No Sex and Gender Information [...] Contact Info) Description 08/08/2025 1:40 PM EDT [facility] [address] [place] [address] [place] [address] [place] [address] med review Zofran and Aderall documented as of this encounter Visit Diagnoses Not on filedocumented in this encounter Care Teams Dermatology Physician Relationship Specialty Start Date End Date Francisco J Rico DO PCP - General Family Medicine 09/01/22 08/09/24 [place] [address] [place] [address] PCP - General Family Medicine 08/10/24 [place] [address] [place] [address] Fountain Worker Family Medicine 11/05/24 03/01/25 Marcelino Stout APRN.EUGENIA [address] [place] [address] Fountain Worker Family Medicine 03/02/25 documented as of this encounter
--- OUTSIDE RECORDS SUMMARY | 2025-07-09 18:05 | XMS_ITS | Encounter Summary ---
Author Organization [facility] Address [address] [place] [address] Care Team Providers Care Car Pusher Name Role Phone Trisha Francisco J Emery DO Primary Care Provider +- [phone] Valerie Arnold DO Primary Care Provider +1 [phone] Nuvia Jesus DO Unavailable Marcelino Stout DRUPAL ARCHITECT.TELEMARKETING SALES REPRESENTATIVE Unavailable Source Comments In the event this information is protected by the Federal Confidentiality of Alcohol and Drug AbusePatient Records regulations: The Federal rules restrict any use of the information to criminally investigate or prosecute any alcohol or drug abuse patient.[facility] Encounter Details Date Type Department Care Team (Late st Contact Info) Description 02/14/2024 Patient Msg Hematology [address] [place], [place] [id number] Provider, [facility] Office Visit Social History Tobacco Use Types Packs/Day Years Used Date Smoking Tobacco: Never Smokeless Tobacco: Never Alcohol Use Standard Drinks/Week Comments Yes 3 (1 standard drink = 0.6 oz pur e alcohol) occasionally C Utilities Answer Date Recorded In the past 12 months has e [employer], gas, oil, or water [employer] threatened to shut off services in your home? No 12/08/2023 Social Connection and Isolation Panel Answer Date Recorded In a typical week, how many times do you talk on the phone with family, friends, or neighbors? Three times a week 12/08/19 How often do you get togethe r with friends or relatives? Once a week 12/08/2023 How often do you attend chur or orthodox services? Never 12/08/2023 Do you belong to any clubs o r organizations such as restorationist groups, unions, fraternal or athletic groups, or [...] Answer Date Recorded PHQ-2 score 0 12/08/2023 [facility] of Occupat ional Health - Occupational [...] is lower risk 2 12/08/2023 Data from: https://www.neighborhoodatlas.[facility].edu/. Last address used for calculation [id number] 12/08/2023 Comments No Sex [...] Assessment Author No 02/14/2023 3:17 PM EDT Haiely Jung RN documented as of this encounter Mental Status * Because of a physical, mental, or emotional condition, do you have serious difficulty concentrating, remembering, or making decisions? Answer Entry Date Author No 02/14/2023 3:17 PM EDT Hailey Jung RN documented in this encounter Plan of Treatment Upcoming Encounters Date Type Department Care Team (Latest Contact Info) Description 08/08/2025 1:40 PM EDT [facility] [address] [place] [address] [place] [address] [place] [address] med review Zofran and Aderall documented as of this encounter Visit Diagnoses Not on filedocumented in this encounter Care Teams Car Pusher Relationship Specialty Start Date End Date Francisco J Rico DO PCP - General Family Medicine 09/01/22 08/09/24 [place] [address] [place] [address] PCP - General Family Medicine 08/10/24 [place] [address] [place] [address] Construction Helper Family Medicine 11/05/24 03/01/25 Marcelino Stout APRN.EUGENIA [address] [place] [address] Construction Helper Family Medicine 03/02/25 documented as of this encounter
--- OUTSIDE RECORDS SUMMARY | 2025-07-09 18:05 | XMS_ITS | Encounter Summary ---
Author Organization [facility] Address [address] [place] [address] Care Team Providers Care Social Services Designee Name Role Phone Francisco J Rico DO Primary Care Provider + [phone] Valerie Arnold DO Primary Care Provider +1 [phone] Nuvia Jesus DO Unavailable Marcelino Stout TEACHER TUTOR.CUSHION STUFFER Unavailable Source Comments In the event this information is protected by the Federal Confidentiality of Alcohol and Drug AbusePatient Records regulations: The Federal rules restrict any use of the information to criminally investigate or prosecute any alcohol or drug abuse patient.[facility] Reason for Visit * Reason Onset Date Comments Refill Request 07/27/2024 Encounter Details Date Type Department Care Team (Late st Contact Info) Description 07/27/2024 Refill Family Medicine [address] [place], [place] [id number] Francisco J Rico DO [address] [place] [address] Refill Request Social History Tobacco Use Types Packs/Day Years Used Date Smoking Tobacco: Never Smokeless Tobacco: Never Alcohol Use Standard Drinks/Week Comments Yes 3 (1 standard drink = 0.6 oz pur e alcohol) occasionally [facility] Utilities Answer Date Recorded In the [...] week 12/08/2023 How often do you attend [facility] ch or congregation services? Never 12/08/2023 Do you belong to any clubs o r organizations such as yarsanism groups, unions, fraternal or athletic groups, or [...] Date Recorded PHQ-2 score 0 12/08/2023 [facility] of Occupat ional Health - Occupational Stress [...] place to sleep or slept in a usp (including now)? No 12/08/2023 Area Deprivation Index Answer Date Oli rded National Score (1-100), lowe r number is lower risk 42 12/08/2023 State Score (1-10), lower number is lower risk 2 12/08/2023 Data from: https://www.neighborhoodatlas.medicine.[facility].edu/. Last address used for calculation [address] 12/08/2023 Comments No Sex [...] encounter Miscellaneous Notes * Telephone Encounter - Chiara Dobson - 07/27/2024 3:17 PM EDT See note from patient Can i get .25 mg dosage so i can titrate back up. Has est care appt with Dr Arnold documented in this encounter Plan of Treatment Upcoming Encounters Date Type Department Care Team (Latest Contact Info) Description 08/08/2025 1:40 PM EDT [facility] Family Medicine [address] [place] [address] [place] [address] [place] [address] med review Zofran and Aderall documented as of this encounter Visit Diagnoses Diagnosis Obesity, Class II, BMI 35-39.9 Obesity, unspecified documented in this encounter Care Teams Social Services Designee Relationship Specialty Start Date End Date Francisco J Rico DO PCP - General Family Medicine 09/01/22 08/09/24 [place] [address] [place] [address] PCP - General Family Medicine 08/10/24 [place] [address] [place] [address] Snack Steward Family Medicine 11/05/24 03/01/25 Marcelino Stout, LANDRY.CUSHION STUFFER [address] [place] [address] Snack Steward Family Medicine 03/02/25 documented as of this encounter
--- OUTSIDE RECORDS SUMMARY | 2025-07-09 18:05 | XMS_ITS | Encounter Summary ---
Author Organization [facility] Address [address] [place] [address] Care Team Providers Care Analytics Analyst Name Role Phone Trisha Francisco J Emery DO Primary Care Provider +1- [phone] Valerie Arnold DO Primary Care Provider +1 [phone] Nuvia Jesus DO Unavailable Marcelino Stout MANAGED CARE LIAISON.MAINFRAME SOFTWARE DEVELOPER Unavailable Source Comments In the event this information is protected by the Federal Confidentiality of Alcohol and Drug AbusePatient Records regulations: The Federal rules restrict any use of the information to criminally investigate or prosecute any alcohol or drug abuse patient.[facility] Encounter Details Date Type Department Care Team (Late st Contact Info) Description 08/16/2023 [place] [address] Provider, [facility] Final Scheduling Notice Social History Tobacco Use Types Packs/Day Years [...] often do you attend chur ch or zoroastrianism services? Never 10/28/2022 Do you belong to any clubs o r organizations such as catholic groups, unions, fraternal or athletic groups, [...] slept in a retirement (including now)? No 10/28/2022 Area Deprivation Index Answer Date Oli rded National Score (1-100), lowe r number is lower risk 36 12/12/2022 State Score (1-10), lower number is lower risk N ot on file 12/12/2022 Data from: https://www.neighborhoodatlas.[facility]/. Last address used for calculation [address] 12/12/2022 Comments No Sex [...] Author No 02/14/2023 3:17 PM EDT Hailey Jung, RN documented as of this encounter Mental Status * Because of a physical, mental, or emotional condition, do you have serious difficulty concentrating, remembering, or making decisions? Answer Entry Date Author No 02/14/2023 3:17 PM EDT Hailey Jung RN documented in this encounter Plan of Treatment Upcoming Encounters Date Type Department Care Team (Latest Contact Info) Description 08/08/2025 1:40 PM EDT [facility] [address] [place] [address] [place] [address] [place] [address] med review Zofran and Aderall documented as of this encounter Visit Diagnoses Not on filedocumented in this encounter Care Teams Analytics Analyst Relationship Specialty Start Date End Date Francisco J Rico DO PCP - General Family Medicine 09/01/22 08/09/24 [place] [address] [place] [address] PCP - General Family Medicine 08/10/24 [place] [address] [place] [address] Account Development Representative Family Medicine 11/05/24 03/01/25 Marcelino Stout APRN.MAINFRAME SOFTWARE DEVELOPER [address] [place] [address] Account Development Representative Family Medicine 03/02/25 documented as of this encounter
--- OUTSIDE RECORDS SUMMARY | 2025-07-09 18:05 | XMS_ITS | Encounter Summary ---
Author Organization [facility] Address [address] [place] [address] Care Team Providers Care Keno Dealer Name Role Phone [place] Primary Care Provider +1 [phone] Marcelino Stout RN SANE.BUSINESS INTELLIGENCE REPORTING ANALYST Unavailable Source Comments In the event this information is protected by the Federal Confidentiality of Alcohol and Drug AbusePatient Records regulations: The Federal rules restrict any use of the information to criminally investigate or prosecute any alcohol or drug abuse patient.[facility] Encounter Details Date Type Department Care Team (Late st Contact Info) Description 06/07/2025 Patient Msg Medical Records [address] [place] [address] Provider, [facility] Questionnaire Submission Social History Tobacco [...] often do you attend chur ch or latter-day services? Never 04/04/2025 Do you belong to any clubs o r organizations such as judaism groups, unions, fraternal or athletic groups, or [...] Answer Date Recorded PHQ-2 score 0 04/04/2025 [facility] - Occupational Stress Questionnaire Answer Date Recorded [...] place to sleep or slept in a fpc (including now)? No 12/08/2023 Area Deprivation Index Answer Date Oli rded National Score (1-100), lowe r number is lower risk 42 12/08/2023 State Score (1-10), lower number is lower risk 2 12/08/2023 Data from: https://www.neighborhoodatlas.medicine.[facility]/. 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
--- OUTSIDE RECORDS SUMMARY | 2025-07-09 18:05 | XMS_ITS | Encounter Summary ---
Author Organization [facility] Address [address] [place] [address] Care Team Providers Care Hose Handler Name Role Phone Trisha Francisco J Emery DO Primary Care Provider +- [phone] Valerie Arnold DO Primary Care Provider [phone] [phone] Nuvia Jesus DO Unavailable Marcelino Stout MULTIGRAPH OPERATOR.PBX REPAIRER Unavailable Source Comments In the event this information is protected by the Federal Confidentiality of Alcohol and Drug AbusePatient Records regulations: The Federal rules restrict any use of the information to criminally investigate or prosecute any alcohol or drug abuse patient.[facility] Encounter Details Date Type Department Care Team (Late st Contact Info) Description 01/31/2024 Patient Msg CB/Gynecology [address] [place] [address] Provider, Ccf Upcoming CT Appointment Social History Tobacco Use Types Packs/Day Years Used Date Smoking Tobacco: Never Smokeless Tobacco: Never Alcohol Use Standard Drinks/Week Comments Yes 3 (1 standard drink = 0.6 oz pur e alcohol) occasionally C Utilities Answer Date Recorded In the past 12 months has th e electric, gas, oil, or water [employer] threatened to shut off services in your home? No 12/08/2023 Social Connection and Isolation Panel Answer Date Recorded In a typical week, how many times do you talk on the phone with family, friends, or neighbors? Three times a week 12/08/19 How often do you get togethe r with friends or relatives? Once a week 12/08/2023 How often do you attend chur or holiness services? Never 12/08/2023 Do you belong to [...] Answer Date Recorded PHQ-2 score 0 12/08/2023 [facility] of Occupat ional Health - [...] place to sleep or slept in a skilled nursing (including now)? No 12/08/2023 Area Deprivation Index Answer Date Oli rded National Score (1-100), lowe r number is lower risk 42 12/08/2023 State Score (1-10), lower number is lower risk 2 12/08/2023 Data from: https://www.neighborhoodatlas.[facility].edu/. Last address used for calculation [address] 12/08/2023 Comments No Sex [...] Info) Description 08/08/2025 1:[address] [facility] [address] [place] [address] [place] [address] [place] [address] med review Zofran and Aderall documented as of this encounter Visit Diagnoses Not on filedocumented in this encounter Care Teams Hose Handler Relationship Specialty Start Date End Date Francisco J Rico DO PCP - General Family Medicine 09/01/22 08/09/24 [place] [address] [place] [address] PCP - General Family Medicine 08/10/24 [place] [address] [place] [address] Traveling Representative Family Medicine 11/05/24 03/01/25 Marcelino Stout APRN.EUGENIA [address] [place] [address] Traveling Representative Family Medicine 03/02/25 documented as of this encounter
--- OUTSIDE RECORDS SUMMARY | 2025-07-09 18:05 | XMS_ITS | Encounter Summary ---
Author Organization [facility] Address [address] [place] [address] Care Team Providers Care Body And Fender Mechanic Apprentice Name Role Phone Francisco J Rico DO Primary Care Provider [phone]- [phone] Valerie Arnold DO Primary Care Provider +1 [phone] Nuvia Jesus DO Unavailable Marcelino Stout BUILDING DISMANTLER.DICE DEALER Unavailable Source Comments In the event this information is protected by the Federal Confidentiality of Alcohol and Drug AbusePatient Records regulations: The Federal rules restrict any use of the information to criminally investigate or prosecute any alcohol or drug abuse patient.[facility] Encounter Details Date Type Department Care Team (Late st Contact Info) Description 02/03/2023 Get Medical Advice Family Medicine [address] [place] [address] Francisco J Rico DO [address] [place] [address] Med dose change request x2 Social History Tobacco Use Types Packs/Day Years [...] How often do you attend chur or uatsdin services? Never 10/28/2022 Do you belong to [...] Answer Date Recorded PHQ-2 score 0 12/28/2022 [facility] of Occupat ional Health - [...] place to sleep or slept in a longterm (including now)? No 10/28/2022 Area Deprivation Index Answer Date Oli rded National Score (1-100), lowe r number is lower risk 36 12/12/2022 State Score (1-10), lower number is lower risk N ot on file 12/12/2022 Data from: https://www.neighborhoodatlas.medicine.[facility].edu/. Last address used for calculation [address] 12/12/2022 Comments No Sex and Gender Information Value Date Recorded Sex Assigned at Not on file Legal Sex Female 10:15 AM EST Gender Identity Not on file Sexual Orientation Not on file documented as of this encounter Plan of Treatment Upcoming Encounters Date Type Department Care Team (Latest Contact Info) Description 08/08/2025 1:40 PM EDT [facility] Family Medicine [address] [place], [place] [id number] [place] [address] [place], [place] [id number] med review Zofran and Aderall documented as of this encounter Visit Diagnoses Not on filedocumented in this encounter Additional Health Concerns Infection Onset Date Last Indicated Resolved Time COVID-19 Rule-Out 02/08/2023 02/08/2023 02/08/2023 2:00 PM EDT COVID-19 Rule-Out 02/13/2023 02/13/2023 02/13/2023 12:52 AM EDT documented as of this encounter Care Teams Body And Fender Mechanic Apprentice Relationship Specialty Start Date End Date Francisco J Rico DO PCP - General Family Medicine 09/01/22 08/09/24 [place] [address] [place] [address] PCP - General Family Medicine 08/10/24 [place] [address] [place] [address] Pamphlet Distributor Family Medicine 11/05/24 03/01/25 Marcelino Stout APRN.EUGENIA [address] [place] [address] Pamphlet Distributor Family Medicine 03/02/25 documented as of this encounter
--- OUTSIDE RECORDS SUMMARY | 2025-07-09 18:05 | XMS_ITS | Encounter Summary ---
Author Organization [facility] Address [address] [place] [address] Care Team Providers Care Forestry Pilot Name Role Phone Trisha Francisco J Emery DO Primary Care Provider +- [phone] Valerie Arnold DO Primary Care Provider +1 [phone] Nuvia Jesus DO Unavailable Marcelino Stout PRINT AND PATTERN DESIGNER.GEAR TESTER Unavailable Source Comments In the event this information is protected by the Federal Confidentiality of Alcohol and Drug AbusePatient Records regulations: The Federal rules restrict any use of the information to criminally investigate or prosecute any alcohol or drug abuse patient.[facility] Encounter Details Date Type Department Care Team (Late st Contact Info) Description 02/09/2023 Patient Msg Family Medicine [address] [place] [address] Provider, [facility]cf Reschedule Social History Tobacco Use Types Packs/Day Years [...] often do you attend chur ch or yarsani services? Never 10/28/2022 Do you belong to [...] Answer Date Recorded PHQ-2 score 0 12/28/2022 [facility] of Occupat ional Health - Occupational [...] place to sleep or slept in a [place] [facility] care facility (including now)? No 10/28/2022 Area Deprivation Index Answer Date Oli rded National Score (1-100), lowe r number is lower risk 36 12/12/2022 State Score (1-10), lower number is lower risk N ot on file 12/12/2022 Data from: https://www.neighborhoodatlas.[facility].edu/. Last address used for calculation [address] 12/12/2022 Comments No Sex and Gender Information Value Date Recorded Sex Assigned at Not on file Legal Sex Female 10:15 AM EST Gender Identity Not on file Sexual Orientation Not on file documented as of this encounter Plan of Treatment Upcoming Encounters Date Type Department Care Team (Latest Contact Info) Description 08/08/2025 1:40 PM EDT [facility] Family Medicine [address] [place] [address] [place] [address] [place] [address] med review Jose M and Lazara documented as of this encounter Visit Diagnoses Not on filedocumented in this encounter Additional Health Concerns Infection Onset Date Last Indicated Resolved Time COVID-19 Rule-Out 02/13/2023 02/13/2023 02/13/2023 12:52 AM EDT documented as of this encounter Care Teams Forestry Pilot Relationship Specialty Start Date End Date Francisco J Rico DO PCP - General Family Medicine 09/01/22 08/09/24 [place] [address] [place] [address] PCP - General Family Medicine 08/10/24 [place] [address] [place] [address] Communications Advisor Family Medicine 11/05/24 03/01/25 Marcelino Stout APRN.GEAR TESTER [address] [place] [address] Communications Advisor Family Medicine 03/02/25 documented as of this encounter
--- OUTSIDE RECORDS SUMMARY | 2025-07-09 18:05 | XMS_ITS | Encounter Summary ---
Author Organization [facility] Address [address] [place] [address] Care Team Providers Care Railroad Car Painter Name Role Phone [place]ore, Duyen DO Primary Care Provider [phone] Nuvia Jesus DO Unavailable Marcelino Stout NATURAL RESOURCES MANAGER.VETERINARY MEDICINE SCIENTIST Unavailable Source Comments In the event this information is protected by the Federal Confidentiality of Alcohol and Drug AbusePatient Records regulations: The Federal rules restrict any use of the information to criminally investigate or prosecute any alcohol or drug abuse patient.[facility] Reason for Visit * Reason Onset Date Comments Refill Request 08/23/2024 Encounter Details Date Type Department Care Team (Late st Contact Info) Description 08/23/2024 Refill Family Medicine [address] [place], [place] [id number] Francisco J Rico DO [address] [place], [place] [id number] Refill Request Social History Tobacco Use Types Packs/Day Years Used Date Smoking Tobacco: Never Smokeless Tobacco: Never Alcohol Use Standard Drinks/Week Comments Yes 3 (1 standard drink = 0.6 oz pur e alcohol) occasionally [facility] Utilities Answer Date Recorded In the past [...] often do you attend chur ch or scientologist services? Never 12/08/2023 Do you belong to [...] Answer Date Recorded PHQ-2 score 0 12/08/2023 [facility] of Occupat ional Health - Occupational Stress [...] is lower risk 2 12/08/2023 Data from: https://www.neighborhoodatlas.[facility].edu/. 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 She says she wanted to switch back to the 20 mg XR of Adderral,which she was on previously but it was out of stock. I refilled it since I wanted her to have it before the weekend if needed. However, thought future requests should go to you since she's established. * Telephone Encounter - Elly Palomares LPN - 08/24/2024 11:07 AM EDT Patient's request for medication is as follows: Patient comment: Adderall 20mg xr is now back in stock at the [facility] in [place]. Can i go back on this dose for my next refill. It works better than the 2 -10mg/day. Thanks! Requested Prescriptions Pending Prescriptions Disp Refills dextroamphetamine-amphetamine (ADDERALL) 10 mg tablet 60 tablet 0 Sig: Take 1 tablet by mouth two times a day for 30 days. Please approve the above prescription(s) to electronically send to pharmacy. Elly Palomares LPN documented in this encounter Plan of Treatment Upcoming Encounters Date Type Department Care Team (Latest Contact Info) Description 08/08/2025 1:40 PM EDT [facility] [address] [place] [address] [place] [address] [place] [address] med review Jose M and Mimal documented as of this encounter Visit Diagnoses Diagnosis Attention deficit hyperactivity disorder (ADHD), predominantly inattentive type documented in this encounter Care Teams Railroad Car Painter Relationship Specialty [place] [address] [place] [address] PCP - General Family Medicine 08/10/24 [place] [address] [place] [address] Plant Packer Family Medicine 11/05/24 03/01/25 Marcelino Stout, LANDRY.EUGENIA [address] [place] [address] Plant Packer Family Medicine 03/02/25 documented as of this encounter
--- OUTSIDE RECORDS SUMMARY | 2025-07-09 18:05 | XMS_ITS | Encounter Summary ---
Author Organization [facility] Address [address] [place] [address] Care Team Providers Care Farrowing Worker Name Role Phone Trisha Francisco J Emery DO Primary Care Provider +- [phone] Valerie Arnold DO Primary Care Provider [phone] Nuvia Jesus DO Unavailable Marcelino Stout HEALTH INFORMATION MANAGER.RESTAURANT RECRUITER Unavailable Source Comments In the event this information is protected by the Federal Confidentiality of Alcohol and Drug AbusePatient Records regulations: The Federal rules restrict any use of the information to criminally investigate or prosecute any alcohol or drug abuse patient.[facility] Encounter Details Date Type Department Care Team (Late st Contact Info) Description 02/09/2023 [place] [address] Provider, [facility] Actionable Imaging Result Notification Patient Outreach Social History Tobacco Use Types Packs/Day Years [...] How often do you attend chur or mandaeism services? Never 10/28/2022 Do you belong to any clubs o r organizations such as hoahaoism groups, unions, fraternal or athletic groups, or [...] Answer Date Recorded PHQ-2 score 0 12/28/2022 [facility] - Occupational Stress Questionnaire Answer Date [...] place to sleep or slept in a senior care (including now)? No 10/28/2022 Area Deprivation Index Answer Date Oli rded National Score (1-100), lowe r number is lower risk 36 12/12/2022 State Score (1-10), lower number is lower risk N ot on file 12/12/2022 Data from: https://www.neighborhoodatlas.medicine.[facility].edu/. Last address used for calculation [address] 12/12/2022 Comments No Sex and Gender Information Value Date Recorded Sex Assigned at Not on file Legal Sex Female 10:15 AM EST Gender Identity Not on file Sexual Orientation Not on file documented as of this encounter Plan of Treatment Upcoming Encounters Date Type Department Care Team (Latest Contact Info) Description 08/08/2025 1:40 PM EDT [facility] Family Medicine [address] [place] [address] [place] [address] [place] [address] med review Rashmi documented as of this encounter Visit Diagnoses Not on filedocumented in this encounter Additional Health Concerns Infection Onset Date Last Indicated Resolved Time COVID-19 Rule-Out 02/13/2023 02/13/2023 02/13/2023 12:52 AM EDT documented as of this encounter Care Teams Farrowing Worker Relationship Specialty Start Date End Date Francisco J Rico DO PCP - General Family Medicine 09/01/22 08/09/24 [place] [address] [place] [address] PCP - General Family Medicine 08/10/24 [place] [address] [place] [address] Business Consult Family Medicine 11/05/24 03/01/25 Marcelino Stout APRN.RESTAURANT RECRUITER [address] [place] [address] Business Consult Family Medicine 03/02/25 documented as of this encounter
--- OUTSIDE RECORDS SUMMARY | 2025-07-09 18:05 | XMS_ITS | Encounter Summary ---
Author Organization [facility] Address [address] [place] [address] Care Team Providers Care Living Nurse Name Role Phone Clayton, Duyen DO Primary Care Provider [phone] Nuvia Jesus DO Unavailable Marcelino Stout WHITE SUGAR SUPERVISOR.SUPERINTENDENT BUILDING Unavailable Source Comments In the event this information is protected by the Federal Confidentiality of Alcohol and Drug AbusePatient Records regulations: The Federal rules restrict any use of the information to criminally investigate or prosecute any alcohol or drug abuse patient.[facility] Reason for Visit * Reason Onset Date Comments Refill Request 12/06/2024 Encounter Details Date Type Department Care Team (Late st Contact Info) Description 12/06/2024 Telephone Family Medicine [address] [place], [place] [id number] Francisco J Rico DO [address] [place] [address] Refill Request Social History Tobacco Use Types Packs/Day Years Used Date Smoking Tobacco: Never Smokeless Tobacco: Never Alcohol Use Standard Drinks/Week Comments Yes 3 (1 standard drink = 0.6 oz pur e alcohol) occasionally [facility] Utilities Answer Date Recorded In the [...] often do you attend chur ch or methodist services? Never 12/08/2023 Do you belong to any clubs o r organizations such as voodoo groups, unions, fraternal or athletic groups, or [...] Answer Date Recorded PHQ-2 score 0 12/08/2023 [facility] of Occupat ional Health - Occupational Stress [...] place to sleep or slept in a group home (including now)? No 12/08/2023 Area Deprivation Index Answer Date Oli rded National Score (1-100), lowe r number is lower risk 42 12/08/2023 State Score (1-10), lower number is lower risk 2 12/08/2023 Data from: https://www.neighborhoodatlas.[facility].edu/. 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 Answer Entry Date Author No 02/14/2023 3:17 PM Hailey Pollack RN documented in this encounter Miscellaneous Notes * Telephone Encounter - Bella Maynard RN - 12/08/2024 4:30 PM EST Call placed to patient at number [phone] . Voicemail left for patient to call back. MC messagesent. Please relay provider message to patient. Please do not remove from inbasket until patient has been notified or has read MC message. * Telephone Encounter - Valerie Arnold DO - 12/08/2024 4:22 PM EST Need updated vit D level before further refills. Thanks. * Telephone Encounter - Blanca Cabrera MA - 12/07/2024 8:17 AM EST Patient's request for medication is as follows: Requested Prescriptions Pending Prescriptions Disp Refills ergocalciferol 50,000 unit capsule (VITAMIN D2, DRISDOL) 12 capsule 0 Sig: Take 1 capsule by mouth one time a week. Use as directed. Prescription(s) as above. Please process accordingly. Rick Rios MA documented in this encounter Plan of Treatment Upcoming Encounters Date Type Department Care Team (Latest Contact Info) Description 08/08/2025 1:40 PM EDT [facility] Family Medicine [address] [place] [address] [place] [address] [place] [address] med review Zofran and Aderall documented as of this encounter Visit Diagnoses Diagnosis Vitamin D deficiency Unspecified vitamin D deficiency documented in this encounter Care Teams Living Nurse Relationship Specialty [place] [address] [place] [address] PCP - General Family Medicine 08/10/24 [place] [address] [place] [address] Brand Marketing Specialist Family Medicine 11/05/24 03/01/25 Marcelino Stout APRN.SUPERINTENDENT BUILDING [address] [place] [address] Brand Marketing Specialist Family Medicine 03/02/25 documented as of this encounter
--- OUTSIDE RECORDS SUMMARY | 2025-07-09 18:05 | XMS_ITS | Encounter Summary ---
Author Organization [facility] Address [address] [place] [address] Care Team Providers Care Photographic Colorist Name Role Phone TrishaFrancisco J Rupert DO Primary Care Provider +- [phone] Valerie Arnold DO Primary Care Provider [phone] Nuvia Jesus DO Unavailable Marcelino Stout BODY AND FRAME TECHNICIAN.LEATHER GRAINER Unavailable Source Comments In the event this information is protected by the Federal Confidentiality of Alcohol and Drug AbusePatient Records regulations: The Federal rules restrict any use of the information to criminally investigate or prosecute any alcohol or drug abuse patient.[facility] Encounter Details Date Type Department Care Team (Late st Contact Info) Description 10/09/2022 [address] [facility] [facility] [place] [address] Provider, [facility] Genetic Consult Referral Social History Tobacco Use Types Packs/Day Years [...] 08/10/2022 How often do you attend chur ch or taoism services? Never 08/10/2022 Do you belong to any clubs o r organizations such as orthodox groups, unions, fraternal or athletic groups, or [...] Answer Date Recorded PHQ-2 score 5 08/10/2022 [facility] of Occupat ional Health - [...] place to sleep or slept in a detention (including now)? No 08/25/2022 Area Deprivation Index Answer Date Oli rded National Score (1-100), lowe r number is lower risk 36 07/15/2022 State Score (1-10), lower number is lower risk N ot on file 07/15/2022 Data from: https://www.neighborhoodatlas.[facility].edu/. Last address used for calculation [address] 07/15/2022 Comments No Sex and Gender Information Value Date Recorded Sex Assigned at Not on file Legal Sex Female 10:15 AM EST Gender Identity Not on file Sexual Orientation Not on file COVID-19 Exposure Response Date Recorded In the last 10 days, have yo u been in contact with someone who was confirmed or suspected to have Coronavirus/COVID-19? No / Unsure 09/28/2022 12:29 PM EDT documented as of this encounter Plan of Treatment Upcoming Encounters Date Type Department Care Team (Latest Contact Info) Description 08/08/2025 1:40 PM EDT [facility] Family Medicine [address] [place] [address] [place] [address] [place], [place] [id number] med review Zofran and Aderall documented as of this encounter Visit Diagnoses Not on filedocumented in this encounter Additional Health Concerns Infection Onset Date Last Indicated Resolved Time COVID-19 Rule-Out 02/08/2023 02/08/2023 02/08/2023 2:00 PM EDT COVID-19 Rule-Out 02/13/2023 02/13/2023 02/13/2023 12:52 AM EDT documented as of this encounter Care Teams Photographic Colorist Relationship Specialty Start Date End Date Francisco J Rico DO PCP - General Family Medicine 09/01/22 08/09/24 [place] [address] [place] [address] PCP - General Family Medicine 08/10/24 [place] [address] [place] [address] Damage Appraiser Family Medicine 11/05/24 03/01/25 Marcelino Stout, LANDRY.LEATHER GRAINER [address] [place] [address] Damage Appraiser Family Medicine 03/02/25 documented as of this encounter
--- NOTE | 2025-07-09 18:12 | ECG_ITS ---
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 Measurements Intervals Flom Rate: 58 P: 48 NV: 154 QRS: 91 QRSD: 88 T: 42 QT: 398 QTc: 395 Interpretive Statements 1100 Sinus rhythm 7102 Moderate right axis deviation 8102 Low QRS voltage in chest leads Abnormal ECG No previous ECG available for comparison Electronically Signed On 07-10-2025 13:54:49 EDT by MARY DE LEON M.D.
--- NOTE | 2025-07-09 18:35 | XR_ITS ---
The [address] [address] Patient Name: ALEXIS GLEZ MRN: [id number] date: 1980 Sex: F Assigned Patient Location: ER Current Patient Location: ER Accession/Order Number: [id number] Exam Date: 07/09/2025 19:39 Report Date: 07/09/2025 19:39 At the request of: MAGALY HAUSER Procedure: XR chest 1V Plain film chest Single view HISTORY: Chest tightness. Shortness of breath COMPARISON: None FINDINGS: SUPPORT DEVICES: None POSTSURGICAL CHANGES: None HEART: Within normal limits PULMONARY HEIDI: Within normal limits MEDIASTINUM: Unremarkable LUNGS AND PLEURA: No acute lung process, pleural effusion or pneumothorax identified. BONY STRUCTURES: Intact ADDITIONAL FINDINGS None XR/XR chest 1V IMPRESSION: No acute process. Impression dictated by: Harry Mata M.D. 07/09/2025 7:39 PM Dictation Location: [facility] Electronically authenticated by: [id number] Y Date: 07/09/2025 19:39
[2025-07-09 18:43] LABS: Hematocrit 39.6 % (36.0-48.0); Hemoglobin 13.2 g/dL (12.0-16.0); Immature Granulocytes Abs Auto 0.01 10^3/uL (0.00-0.03); Immature Granulocytes Pct Auto 0.2 % (0.0-0.5); Lymphocytes Absolute Auto 2.6 10^3/uL (1.2-3.8); Mean Corpuscular HGB Conc 33.3 g/dL (29.9-35.2); Mean Corpuscular Hemoglobin 30.8 pg (26.7-34.0); Mean Corpuscular Volume 92.3 fL (81.0-99.0); Platelet Count 329 10^3/uL (150-450); Red Blood Count 4.29 10^6/uL (4.20-5.40); White Blood Count 6.2 10^3/uL (4.0-11.0)
[2025-07-09] MEDS: 0.9 % SODIUM CHLORIDE 1,000 ML 999 ML IV (18:48)
[2025-07-09 18:54] LABS: Alanine Aminotransferase 27 U/L (14-59); Albumin Globulin Ratio 1.1; Albumin Level 3.9 g/dL (3.4-5.0); Alkaline Phosphatase 81 U/L (46-116); Anion Gap 10.3; Aspartate Amino Transferase 21 U/L (15-37); Blood Urea Nitrogen 17.0 mg/dL (7.0-18.0); Calcium 9.0 mg/dL (8.5-10.1); Carbon Dioxide 27.1 mmol/L (21.0-32.0); Chloride 104 mmol/L (98-107); Estimated GFR (African America >60 (>=60 mL/min/1.73m^2); Estimated GFR (Non-African Ame >60 (>=60 mL/min/1.73m^2); Globulin 3.6 g/dL; Glucose 80 mg/dL (74-106); Potassium 3.4 mmol/L (3.5-5.1); Sodium 138 mmol/L (136-145); Total Protein 7.5 g/dL (6.4-8.2)
[2025-07-09 18:56] LABS: Glucose Urine UA NEGATIVE (NEGATIVE)
[2025-07-09 19:00] LABS: INR 1.05; Prothrombin Time 11.1 sec (9.0-11.6)
[2025-07-09 19:02] LABS: Magnesium 2.0 mg/dL (1.8-2.4); Thyroid Stimulating Hormone 3.531 uIU/mL (0.358-3.740)
[2025-07-09 19:08] LABS: HCG Qualitative Urine* NEGATIVE (NEGATIVE)
[2025-07-09 19:09] LABS: Cast Seen? NONE SEEN #/LPF (NONE SEEN); Crystals Seen? None Seen #/HPF (None Seen); Urine Culture Indicated NO
--- NOTE | 2025-07-09 19:59 | ED_ITS ---
HPI - Chest Pain General Chief Complaint: Chest Pain Stated Complaint: SHORTNESS OF BREATH, CHEST TIGHTNESS Time Seen by Provider: 07/09/25 18:20 Source: patient Mode of arrival: walk-in History of Present Illness HPI narrative: HPI: 45-year-old female with no known past medical history presents after an episode earlier today of palpitations and shortness of breath while walking to her car during hot weather (~95?F). She had been seated working all morning without food or drink since last night. Upon exertion in the heat, she developed symptoms without associated chest pain, dizziness, or syncope. Symptoms resolved after r esting, but she reports persistent generalized fatigue. No recent illness, travel, or sick contacts. Related Data Allergies Allergy/AdvReac Type Severity Reaction Status Date / Time codeine Allergy Severe Anaphylaxis Verified 07/09/25 18:09 PFSH PFSH Social History Little interest or pleasure in doing things: not at all Feeling down, depressed, or hopeless: not at all Exam Constitutional Vital Signs, click to edit/add: Last Vital Signs Temp 98.2 F 07/09/25 18:01 Pulse 57 L 07/09/25 20:30 Resp 15 07/09/25 20:39 BP 137/79 07/09/25 20:30 Pulse Ox 98 07/09/25 18:54 O2 Del Method Room Air 07/09/25 18:54 Documenting provider has reviewed patient's vital signs: yes Common normals: no apparent distress, average body habitus, oriented x3, no limitations, healthy appearing, alert and well nourished [facility] Common normals: normocephalic Head and scalp: normal to inspection, normocephalic and atraumatic Nose: external nose normal, nares normal and nasal mucous membranes and turbinates normal Tympanic membrane: TMs normal bilaterally Mouth: oral and palatal mucosa normal, lip normal and salivary glands and ducts normal; moist mucous membranes not abnormal Teeth and gingiva: abnormal tooth and associated gingiva Throat: posterior oropharynx normal, tonsils normal and uvula midline Eye Common normals: PERRL, EOMs intact bilaterally and conjunctivae normal General eye: normal appearance of both eyes Neck & C-Spine Common normals: full ROM, no lymphadenopathy and supple Lymph Lymphatic: no lymphadenopathy noted Chest Common normals: inspection of chest normal Respiratory Common normals: normal respiratory effort and clear to auscultation bilaterally Cardio Common normals: regular rate, regular rhythm, S1 normal heart sound, S2 normal heart sound, no murmurs and peripheral pulses 2+ throughout GI Common normals: Normal to inspection, nondistended, normoactive bowel sounds present, soft to palpation, non-tender, no hepatosplenomegaly, no masses and no bruits Common normals: no CVA tenderness Back & Pelvis Common normals: no CVA tenderness, thoracic and lumbar spine normal to inspection, no thoracic nor lumbar tenderness, thoraco-lumbar ROM normal and straight leg raise negative bilaterally Extremity Common normals: normal to inspection, full ROM and normal capillary refill Neuro Common normals: oriented x3, CN's II-XII intact bilaterally, moves all extremities, no focal motor deficits, no sensory deficits noted and gait normal Psych Common normals: thought process normal, cooperative, affect normal and speech normal Course Vital Signs Vital signs: Vital Signs Temperature 98.2 F 07/09/25 18:01 Pulse Rate 63 07/09/25 18:01 Respiratory Rate 18 07/09/25 18:01 Blood Pressure 160/87 H 07/09/25 18:01 Pulse Oximetry 100 07/09/25 18:01 Oxygen Delivery Method Room Air 07/09/25 18:01 Temperature 98.2 F 07/09/25 18:01 Pulse Rate 57 L 07/09/25 20:30 Respiratory Rate 15 07/09/25 20:39 Blood Pressure 137/79 07/09/25 20:30 Pulse Oximetry 98 07/09/25 18:54 Oxygen Delivery Method Room Air 07/09/25 18:54 MDM - Chest Pain MDM Narrative Medical decision making narrative: Medical Decision Makin-year-old female with no significant past medical history presents with transient palpitations and shortness of breath occurring during exertion in hot weather. She did not experience syncope, dizziness, or chest pain. Symptoms resolved with rest but were followed by generalized fatigue. Exam was normal. Vitals notable for mild hypertension; otherwise stable. Workup included: * Labs: Mild hypokalemia (K 3.3), blood glucose 70, concentrated urine suggestive of dehydration, otherwise normal CBC, BMP, kidney function. * Cardiac markers: Troponin negative, EKG without ischemic changes or arrhythmia. * Other labs: TSH normal, D-dimer negative. * Imaging: Chest X-ray clear. Presentation most consistent with heat-related dehydration compounded by poor oral intake. Mild hypokalemia likely secondary to dehydration. No evidence of acute coronary syndrome, pulmonary embolism, arrhythmia, or other acute cardiopulmonary process. Patient was treated with 1L IV fluids, counseled on hydration and regular meals, and advised to follow up with her primary care provider. Return precautions discussed. Patient improved and was discharged in stable condition. We discussed her work up and lab findings as well. Medical Records Data Attestation: I reviewed the patient's medical records. Lab Data Attestation: I reviewed the patient's lab results. Labs: Lab Results 07/09/25 07/09/25 07/09/25 Range/Units 18:25 18:43 18:47 WBC 6.2 (4.0-11.0) 10^3/uL RBC 4.29 (4.20-5.40) 10^6/uL Hgb 13.2 (12.0-16.0) g/dL Hct 39.6 (36.0-48.0) % MCV 92.3 (81.0-99.0) fL MCH 30.8 (26.7-34.0) pg MCHC 33.3 (29.9-35.2) g/dL RDW 13.9 (11.0-15.0) % Plt Count 329 (150-450) 10^3/uL MPV 9.6 (9.5-13.5) fL Neut % (Auto) 47.1 (43.0-75.0) % Lymph % (Auto) 42.6 (20.5-60.0) % [place] % (Auto) 7.6 (1.7-12.0) % Eos % (Auto) 1.9 (0.9-7.0) % Baso % (Auto) 0.6 (0.2-2.0) % Neut # (Auto) 2.9 (1.4-6.5) 10^3/uL Lymph # (Auto) 2.6 (1.2-3.8) 10^3/uL [place] # (Auto) 0.5 (0.3-0.8) 10^3/uL Eos # (Auto) 0.1 (0.0-0.7) 10^3/uL Baso # (Auto) 0.0 (0.0-0.1) 10^3/uL Abs Immat Gran (auto) 0.01 (0.00-0.03) 10^3/uL Imm/Tot Granulo (auto) 0.2 (0.0-0.5) % PT 11.1 (9.0-11.6) sec INR 1.05 D-Dimer 0.27 (<=0.59) mg/L FEU Sodium 138 (136-145) mmol/L Potassium 3.4 L (3.5-5.1) mmol/L Chloride 104 (98-107) mmol/L Carbon Dioxide 27.1 (21.0-32.0) mmol/L Anion Gap 10.3 BUN 17.0 (7.0-18.0) mg/dL Creatinine 0.72 (0.55-1.02) mg/dL Est GFR ( Amer) >60 (>=60 mL/min/1.73m^2) Est GFR (Non-Af Amer) >60 (>=60 mL/min/1.73m^2) BUN/Creatinine Ratio 23.6 Glucose 80 (74-106) mg/dL Calcium 9.0 (8.5-10.1) mg/dL Magnesium 2.0 (1.8-2.4) mg/dL Total Bilirubin 0.5 (0.2-1.0) mg/dL AST 21 (15-37) U/L ALT 27 (14-59) U/L Alkaline Phosphatase 81 (46-116) U/L Troponin I High Sens <4.0 L (4.0-51.3) pg/mL Total Protein 7.5 (6.4-8.2) g/dL Albumin 3.9 (3.4-5.0) g/dL Globulin 3.6 g/dL Albumin/Globulin Ratio 1.1 TSH 3.531 (0.358-3.740) uIU/mL Urine Color Yellow (YELLOW) Urine Clarity Clear (CLEAR) Urine pH 5.5 (5.0-9.0) Ur Specific [place] >=1.030 A (1.005-1.025) Urine Protein Trace (NEG/TRACE) mg/dL Urine Glucose (UA) Negative (NEGATIVE) mg/dL Urine Ketones Negative (NEGATIVE) mg/dL Urine Occult Blood Negative (NEGATIVE) Urine Nitrite Negative (NEGATIVE) Urine Bilirubin Negative (NEGATIVE) Urine Urobilinogen 1.0 (0.2-1.0) EU/dL Ur Leukocyte Esterase Negative (NEGATIVE) Urine RBC None seen (0-2) #/HPF Urine WBC 0-2 A (NONE SEEN) #/HPF Ur Squamous Epith Cells Rare (NONE/RARE) #/LPF Urine Crystals None seen (None Seen) #/HPF Urine Bacteria None seen (NONE SEEN) #/HPF Urine Casts None seen (NONE SEEN) #/LPF Urine Mucus Trace A (NONE SEEN) Ur Culture Indicated? No Urine HCG, Qual Negative (NEGATIVE) POC Glucose 71 L (74-106) mg/dL Imaging Data Chest x-ray: Radiologist's impression: ITS Impressions Chest X-Ray 07/09/25 18:35 IMPRESSION: No acute process. Impression dictated by: Harry Mata M.D. 07/09/2025 7:39 PM Dictation Location: [employer] Electronically authenticated by: [id number] Y Date: 07/09/2025 19:39 ECG Data Attestation: I personally reviewed and interpreted this ECG as follows: ECG interpretation date: 07/09/25 ECG interpretation time: 18:10 Prior ECG tracings: not available for review Interpretation: Patient's EKG shows a sinus rhythm with a ventricular rate of 58 bpm. MA interval 154, QRS of 88, QT/QTc of 398/395. Patient has no T wave inversion. No ST depression or elevation. Regular rhythm no ectopy. No STEMI. Heart Score History: Slightly/Non-Suspicious ECG: Normal Age: <45 years Risk Factors: No Risk Factors Troponin: <Normal Limit Total Heart Score Recommendations & Risks:: 0 Discharge Plan Discharge Chief Complaint: Chest Pain Clinical Impression: Dehydration, Heart palpitations Fatigue Qualifiers: Fatigue type: unspecified Qualified Code(s): R53.83 - Other fatigue Patient Disposition: Home, Self-Care Time of Disposition Decision: 20:04 Condition: Good Print Language: [place] Island[place] Instructions: Heart Palpitations (ED), Dehydration (DC) Additional Instructions: Follow-up with PCP this week. May need to follow-up with cardiology if palpitations persist. Make sure to hydrate appropriately and eat a balanced diet. Referrals: Physician,Non-Staff, [Primary Care Provider] - 1 week Discharge Date/Time: 07/09/25 20:44
== END 2025-07-09 20:44 | disposition home or self-care (01) ==
PROVIDERS: Physician Assistant; Emergency Provider Emergency Medicine
DX: E86.0 Dehydration (principal); R53.83 Other fatigue; R00.2 Palpitations; R06.02 Shortness of breath
CPT/HCPCS: 36415; 71045; 80053; 81001; 83735; 84443; 84484; 84703; 85025; 85378; 85610; 93005; 99285